=== PATIENT | female | born 1985 | race Hispanic/Latino ===

== ENCOUNTER 2025-09-05 07:38 | Day surgery (SDC) | payer BC ==
[2025-09-02 08:46] LABS: IMMATURE GRANULOCYTE ABSOLUTE 0.02 K/uL (0-1); NUCLEATED RED BLOOD CELLS 0.0 % (0.0-0.19); PLATELET COUNT (AUTO) 282 K/uL (130-400); RED BLOOD CELL COUNT(AUTO) 4.13 MIL/uL (4.00-5.50); RED CELL DISTRIBUTION WIDTH 14.6 % (11.0-15.5); WHITE BLOOD COUNT (AUTO) 5.4 K/uL (4.8-10.8)
[2025-09-02 08:54] LABS: CREATININE 0.6 mg/dL (0.5-1.0); GLOMERULAR FILTR. RATE CALC 118.0 mL/min (>90); GLUCOSE,RANDOM 97.0 mg/dL (70-105); SODIUM SERUM 138.0 mmol/L (136-145); UREA NITROGEN, BLOOD 16.0 mg/dL (7-18)
[2025-09-02 08:57] LABS: INR 1.0 (0.85-1.15)
[2025-09-02 09:14] VITALS: BP 107/69; PULSE 66; RESP 18; TEMP 98.1
--- NOTE | 2025-09-02 10:29 | EKG ---
[facility] Test Date: 2025-09-02 Test Time: 09:37:39 Pat Name: RAEANN PUENTE Department: [facility] Room: Gender: F Slash Trimmer: [id number] : 1985 Requested By: TEN BREEN Order Number: [id number] Reading MD: Esperanza Calhoun Measurements Intervals [place] Rate: 69 P: 31 [place]: 112 QRS: -17 QRSD: 79 T: 15 QT: 418 QTc: 447 Interpretive Statements Sinus rhythm Low voltage, precordial leads No previous ECG available for comparison Electronically Signed On 09-02-2025 13:49:47 [employer] by Esperanza Calhoun Please click the below link to view image of tracing.
[2025-09-05] VITALS (13 sets, daily range): BP systolic 100–112; BP diastolic 54–78; PULSE 63–83; RESP 13–17; TEMP 97.4–97.8
[~2025-09-05] VITALS: Ht 154.9 cm; Wt 58.8 kg
[~2025-09-05 07:38] MED LIST: DICY20TA3 PO
[2025-09-05] MEDS: LACTATED RINGERS 1000ML 1,000 ML IV ONE (08:33)
[2025-09-05] MEDS ORDERED: MIDAZOLAM HCL 1 MG/ML 2ML VIAL ONE (12:54)
[2025-09-05] MEDS: INDOCYANINE GREEN 25 MG VIAL IJ ONE (12:57)
[2025-09-05] MEDS ORDERED: LIDOCAINE PF 100MG/5ML (2%) SYRINGE 5ML ONE (13:02)
[2025-09-05] MEDS ORDERED: GLYCOPYRROLATE 0.2 MG/ML 5 ML VIAL ONE (14:09)
[2025-09-05] MEDS ORDERED: NEOSTIGMINE METHYLSULFATE 1MG/ML IV ONE (14:09)
--- NOTE | 2025-09-05 14:20 | OP ---
Operative Note: DATE OF PROCEDURE: 09/05/25 SURGEON: TEN BREEN MD AGED OR DISABLED CARER: Timothy Breen MD p.a. C ANESTHESIA: General and local ANESTHESIOLOGIST/ASSISTANT CLINICAL DIRECTOR: [facility] [place] PREOPERATIVE DIAGNOSIS: Symptomatic cholelithiasis POSTOPERATIVE DIAGNOSIS: As above SYNOPSIS: Removal of the gallbladder without immediate complication PROCEDURE: Robotic assisted cholecystectomy with IC green intraoperative cholangiogram ESTIMATED BLOOD LOSS: Minimal, less than 30 cc INDICATIONS: As above DESCRIPTION OF PROCEDURE: After standard precautions and preparations were undertaken a Veress needle and optical trocar were used to enter the abdominal cavity. All other instruments were placed under direct vision. The robotic system was docked in the standard fashion. We began our dissection by elevating the gallbladder cephalad and working in the area of the infundibulum. We achieved a critical view of safety by identifying a single ductal and single vascular structure entering the gallbladder in the area of the infundibulum. The anatomy was further confirmed by use of IC-Green and firefly visual technology to perform a cholangiogram. We are able to eliminate the ductal system from the liver to the common hepatic to the common bile duct and examined the junction of the cystic duct with the common hepatic and common bile ducts. There was no sign of obstruction to flow of bile and the anatomy was as we anticipated. At this point we felt comfortable clipping and dividing the structures. The gallbladder was removed from its attachments to the gallbladder fossa utilizing monopolar cautery. A separate set of clips were placed on the posterior branch vessel. The gallbladder was placed in an Endo-Catch bag and removed from the abdomen without issue. The fascia was closed to prevent future hernia. All instrument counts were verified as correct prior to ending the case including needles and sponges. Additionally we examined the area of the clips and found the area to be hemostatic with the clips in their appropriate location. TEN BREEN MD Sep 05, 2025 14:20
--- NOTE | 2025-09-05 14:32 | PN ---
GENERAL SURGERY PROGRESS NOTE Date/Time Patient Seen: [09/05/2025 at 2:30 p.m. ] Problem List: [ ] Interval History: [Postop day 0. Pain tolerable with the p.r.n. medication. ] Physical Examination: GENERAL: [No acute distress.] ABD: [Incisions clean, dry and intact, Dermabond in place Vital Signs (last 8hr) Date Time Temp Pulse Resp B/P (MAP) Pulse Ox O2 Delivery O2 Flow Rate FiO2 09/05/25 08:31 97.9 64 16 107/65 98 Room Air Laboratory: [ ] Diagnostics / Radiology: [Copy/Paste Echos/Imaging Report here] Impression and Plan: [Plan is for discharge home in the next few hours as long as patient tolerating p.o., ambulatory and pain under control. Discussed with the patient and family. They understand and agree. ] ALINA BREEN PAC Sep 05, 2025 14:32
--- NOTE | 2025-09-05 15:15 | NUR ---
PATIENT ARRIVED TO DAY PATIENT VIA STRETCHER BY JACQUELYN FLOWERS. PATIENT AAOX3, VITALS SIGNS STABLE. S/P ROBOTIC CHOLECYSTECTOMY, INCISIONS X5 WITH DERMABOND.
--- NOTE | 2025-09-05 15:40 | NUR ---
PATIENT DISCHARGED FROM FACILITY VIA WHEELCHAIR BY NURSE AND ASSISTED INTO PRIVATE VEHICLE DRIVEN BY FAMILY.
== END 2025-09-05 15:40 | disposition home or self-care (01) ==
LOC: DAH 07:38
PROVIDERS: ATTEND Surgery
DX: K80.10 Calculus of gallbladder with chronic cholecystitis without obstruction (principal); R93.2 Abnormal findings on diagnostic imaging of liver and biliary tract; F41.9 Anxiety disorder, unspecified; F32.A Depression, unspecified; Z79.01 Long term (current) use of anticoagulants
CPT/HCPCS: 47563; S2900; 36415; 80048; 81025; 84703; 85025; 85610; 85730; 86850; 86900; 86901; 88304; 93005; J1100; J2003; J2250; J2405; J2704; J2710; J3010; J3490; J7030; J7120; A4213; A4215; A4216; A4221; A4222; A4223; A4600; A4663; A4930; A6260; J0665; J0690